=== PATIENT | female | born 1980 | race Caucasian/White ===

== ENCOUNTER 2021-03-23 09:26 | Emergency (ER) | payer OTHER ==
[~2021-03-23 09:26] MED LIST: CLARITIN10 M2 PO; IBUPROFEN600 MG PO; LORTAB 10 MG-3473 ML PO; MACRODANTIN50 MG PO; PRINIVIL20 MG PO; TINIDAZOLE250 MG PO; VENLAFAXINE HCL75 MG PO
[2021-03-23 10:26] LABS: BILIRUBIN NEGATIVE (NEGATIVE); BLOOD TRACE-INTACT Ery/uL (NEGATIVE); CLARITY HAZY (CLEAR); COLOR YELLOW (YELLOW); GLUCOSE (U) NORMAL (NORMAL); LEUKOCYTES 3+ Leu/uL (NEGATIVE); NITRITE POSITIVE (NEGATIVE); PROTEIN NEGATIVE (NEGATIVE); SPECIFIC GRAVITY 1.015 (1.001-1.030); UROBILINOGEN 0.2 mg/dL (0.2-1.0)
[2021-03-23 10:36] LABS: BACTERIA 3+; URINARY WBC 20-50
[2021-03-23] MEDS ORDERED: DIFLUCAN150 MG PO (12:02)
[2021-03-23] MEDS ORDERED: PREDNISONE 20MG20 MG PO (12:02)
[2021-03-23] MEDS ORDERED: CIPRO500 MG PO (12:02)
== END 2021-03-23 12:09 | disposition home or self-care (01) ==
LOC: FER 09:26
PROVIDERS: Emergency Medicine
DX: M54.16 Radiculopathy, lumbar region (principal); N39.0 Urinary tract infection, site not specified; F17.210 Nicotine dependence, cigarettes, uncomplicated; Z88.5 Allergy status to narcotic agent; Z88.6 Allergy status to analgesic agent
CPT/HCPCS: 72110; 81001; 87076; 87088; 87186